=== PATIENT | male | born 1955 | race Caucasian/White ===

== ENCOUNTER 2020-07-18 18:12 | Emergency (ER) | payer OTHER, SELFPAY ==
[2020-07-18 18:13] VITALS: BP 188/99; PULSE 113; RESP 18; TEMP 36.6; O2SAT 98; BMI 27.3
--- NOTE | 2020-07-18 18:30 | ED.VIS.GEN ---
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 He denies history of coronary disease. He presents because of aching sensation that initially was in the proximity of the vaccine site. He states the pain then moved to the left trapezius area and belly of the bicep. He now complains of pain over the radial dorsal proximal portion of his left forearm. He also complains of tingling in all of his fingers. The pain is not in a radicular pattern. He does report increased pain with movement of his neck because of stiffness. He states he is not able to turn his neck as part of the left when he looks to make sure there is no vehicle behind his truck. He denies chest discomfort. He denies dyspnea or dyspnea on exertion. He denies orthopnea or PND. He denies abdominal pain. He denies headache. He denies visual symptoms. Nuys trouble with speech or swallowing. Prior similar symptoms: No Recent Illness/Hospitalization: No Past Medical History - Allergies and Home Meds Allergies/Adverse Reactions: Allergies No Known Allergies Allergy (Verified 07/18/20 18:15) Primary Care Physician: Chucky Brar III, MD [Primary Care Provider] - Prior records reviewed: No - Available since 2013 Surgical History: noncontributory Lives: Spouse/ Significant Other Smoking Status: Never smoker Alcohol: Rare Drugs: None Review of Systems General: Denies: Chills, Fever, Malaise, Subjective, Sweats Eyes: Denies: Visual changes - bilaterally, Blurred Vision - bilaterally ENT: Denies: Bilateral ear pain, Rhinorrhea, Sore throat Cardiovascular: Denies: Chest pain, Palpitations, Heart racing Respiratory: Denies: Dyspnea, Cough, Dyspnea on exertion, Orthopnea, Paroxysmal nocturnal dyspnea Gastrointestinal: Denies: Nausea, Vomiting Musculoskeletal: Reports: Extremity Pain. Denies: Myalgias, Arthralgias, Neck pain, Back pain, Swelling Skin: Denies: Rash, Abscess, Wounds Neurological: Reports: Parasthesia, Numbness - As described in the HPI. Denies: Headache, Weakness Endocrine: Denies: Polyuria, Polydipsia Physical Exam Vital Signs/Narrative: Vital Signs Temp Pulse Resp BP Pulse Ox 07/18/20 18:13 97.9 F 113 H 18 188/99 H 98 Inital Vital Signs reviewed: Yes General: Well nourished, Well developed, No Acute Distress Head: Normocephalic, Atraumatic Eyes: Perrl, EOMI. Negative for: Pale conjunctiva, Scleral icterus ENT: Moist mucous membranes, No rhinorrhea. Negative for: Nasal congestion Neck: Supple, Nontender, No lymphadenopathy, No JVD Cardiovascular: Regular rate, Regular rhythm, No murmurs, Normal S1, Normal S2 Respiratory: No distress, CTA bilaterally Skin: Normal color, No rash. Negative for: Cyanosis, Diaphoresis, Jaundice Neurological: Alert, Oriented x3, Cranial nerves II-XII grossly intact, Normal Strength - 5/5 all major muscle groups upper extremity, Normal Sensation, Normal DTR - Bicep, brachioradialis and tricep reflexes are 1-2+ and symmetric., - - Axillary, median, radial and ulnar function intact. Psychological: Normal affect Diagnostic/Tx/Re-eval - Medical Decision Making With migratory symptoms and symptoms starting day after vaccine suspect this is due to the Covid vaccine since his exam is negative and his history does not suggest cervical radicular pain or cardiac pain. ED Disposition - Plan for ED Patient: Disposition: Home or Assisted Living Diagnosis: Adverse effect of COVID-19 vaccine Instructions: ED Drug Reaction, Other Referrals: Chucky Brar III, MD [Primary Care Provider] - 1 Week if not improving
== END 2020-07-18 19:01 | disposition home or self-care (01) ==
LOC: ED 18:54
PROVIDERS: Emergency Provider Emergency Medicine; PCP Family Medicine
DX: T88.1XXA Other complications following immunization, not elsewhere classified, initial encounter (principal); M79.632 Pain in left forearm; M54.2 Cervicalgia; R20.2 Paresthesia of skin
CPT/HCPCS: 99282

== ENCOUNTER 2020-07-31 07:08 | Emergency (ER) | payer OTHER, SELFPAY ==
[2020-07-31 07:10] VITALS: BP 189/88; PULSE 106; RESP 22; TEMP 36.3; O2SAT 97; BMI 28.8
--- NOTE | 2020-07-31 07:15 | EKG12_ITS ---
Test Reason : BACK PAIN Blood Pressure : / mmHG Vent. Rate : 103 BPM Atrial Rate : 103 BPM P-R Int : 226 ms QRS Dur : 090 ms QT Int : 330 ms P-R-T Axes : 056 060 035 degrees QTc Int : 432 ms Sinus tachycardia with 1st degree A-V block Voltage criteria for left ventricular hypertrophy Abnormal ECG Confirmed by CASEY HERRMANN, JAVIER ([id number]), production editor ALLEGRA STAPLETON ([id number]) on 08/02/2020 10:58:58 AM Referred By: MORENA Confirmed By:JAVIER PEÑA MD
--- NOTE | 2020-07-31 07:19 | ED.VIS.GEN ---
History of Present Illness Chief Complaint: Back Narrative: Patient presents with left-sided thoracic back pain that started about 9 days ago. He was seen in the emergency department, at that time it was thought to be secondary to a Covid vaccination however his pain is both in the shoulder and the thoracic paraspinal region. He has no chest pain. He has no tearing sensation. He has no pleuritic component. No lower extremity edema or calf pain. He has no fevers or chills. No cough or congestion no abdominal pain. The pain does radiate into the arm but he has no loss of strength or sensory problems. Past medical history: Hypertension Medications: Reviewed includes lisinopril Social history: Noncontributory PCP Dr. Brar Review of systems: All systems negative except as indicated General: Denies: Fever Eyes: Denies: Visual changes - bilaterally ENT: Denies: Rhinorrhea, Sore throat Cardiovascular: Denies: Chest pain, no palpitations, no pleuritic component. Respiratory: Denies: Dyspnea, Cough Gastrointestinal: Denies: Abdominal pain, Nausea, Vomiting Genitourinary: Denies: Dysuria Musculoskeletal: Denies: Myalgias Back: There is left-sided thoracic pain. Skin: Denies: Rash Neurological: Denies: Headache, no focal weakness Psych: Reports: negative Hematologic: Denies: Easy bruising, Easy bleeding Physical exam General: Patient appears relatively comfortable in the bed. Head: Normocephalic, Atraumatic Eyes: Conjunctiva not pale ENT: Moist mucous membranes Neck: Supple, Nontender, No lymphadenopathy no C-spine tenderness Cardiovascular: Regular rate, Regular rhythm Respiratory: No distress, CTA bilaterally Abdomen: Soft, Nontender, Nondistended Back: No thoracic spinal tenderness, all his pain is in the trapezius and some paraspinal thoracic back pain. It is quite reproducible both with palpation and movement of the arm. Extremities: Nontender, No edema Skin: Normal color, No rash Neurological: Alert, Normal Strength of both upper extremities, equal. Normal Sensation Psychological: Normal affect Past Medical History - Allergies and Home Meds Allergies/Adverse Reactions: Allergies No Known Allergies Allergy (Verified 07/31/20 07:15) Primary Care Physician: Chucky Brar III, MD [Primary Care Provider] - Surgical History: noncontributory Smoking Status: Never smoker Physical Exam Vital Signs/Narrative: Vital Signs Temp Pulse Resp BP Pulse Ox 07/31/20 07:10 97.3 F L 106 H 22 H 189/88 H 97 Diagnostic/Tx/Re-eval Chest X-Ray - ED: 1 View, Read by ED Physician, Read by Radiologist, Normal, Heart, Lungs - Rhythm Strip Rhythm Strip: Sinus Rhythm Rate: 103 Ectopy: None - EKG Follow-up EKG Interpretation: - - Sinus rhythm with a rate of 103. Normal [place] and QTc interval. No ischemic changes. Interpreted by emergency doctor - Medical Decision Making Patient has an unremarkable ED work-up. Symptoms have been ongoing for some time. He has reproducible thoracic back pain. I do not believe further work-up is needed. He has normal strength and sensation I did mention to him that he. Otherwise I will discharge him with muscle relaxants. ED Disposition - Plan for ED Patient: Diagnosis: Acute thoracic myofascial strain Instructions: ED Back Sprain/Strain Prescriptions: Tizanidine HCl 2 mg PO BID #20 tablet Transmission Status: Pending to [id number] Referrals: Chucky Brar III, MD [Primary Care Provider] - 2 Days
[2020-07-31 07:24] LABS: Absolute Lymphocyte Count 1.07 X10^3/uL (0.83-4.51); Absolute Neutrophil Count 10.9 X10^3/uL (2.0-7.7); Basophil# 0.02 X10^3/uL; Basophil% 0.2 % (0-1); Eosinophil# 0.03 X10^3/uL; Eosinophils% 0.2 % (0-5); Hematocrit 47.1 % (40-54); Hemoglobin 15.8 g/dL (13.0-16.5); Lymphocyte # 1.07 X10^3/ul (4.0); Lymphocyte % 8.2 % (19-41); Mean Corp Hgb Conc 33.5 g/dL (32-36); Mean Corpuscular Hgb 30.7 pg (27.0-32.0); Mean Corpuscular Volume 91.6 fL (80-94); Mean Platelet Vol. 8.3 fl (6.2-12.0); Monocyte# 0.95 X10^3/uL; Monocyte% 7.3 % (0-10); NRBC Flagged by Analyzer 0 % (0-5); Neutrophil # 10.88 X10^3/uL (2.7-7.7); Neutrophil % 83.7 % (47-70); Platelet Count 310 K/mm3 (150-450); RBC Distribution Width CV 12.2 % (11.6-14.6); RBC Distribution Width SD 41.1 fl (35.1-43.9); Red Blood Count 5.14 M/mm3 (4.6-6.2)
--- NOTE | 2020-07-31 07:26 | RAD_ITS ---
STUDY: X-RAY CHEST REASON FOR EXAM: Male, 65 years old. Back pain TECHNIQUE: Single AP portable view of the chest. COMPARISON: None. FINDINGS: EKG electrodes are seen. Hyperinflation. The lungs are clear. There is no demonstrated pleural abnormality. Normal size heart. Normal mediastinum and erika. Normal visualized pulmonary arteries. There is atherosclerotic tortuosity of the aortic arch and descending thoracic aorta. There are diffuse degenerative changes of the visualized thoracic spine. Normal visualized ribs, clavicles, and shoulders. There is no demonstrated abnormality of the visualized soft tissue structures of the upper abdomen. RAD/Chest 1 View (Portable) IMPRESSION: Hyperinflation. The lungs are clear. Electronically Signed: Jorge Mcdaniels MD at 8:32 EDT , Service support ,
[2020-07-31] MEDS: Ketorolac 15 MG/ML Vial IV (07:36)
[2020-07-31 07:44] LABS: ALB/GLOB Ratio 1.1 RATIO (0.9-2.4); AST(SGOT) 18 U/L (15-37); Alanine Aminotransfer ALT/SGPT 31 U/L (16-61); Albumin, Serum 3.9 g/dL (3.2-5.0); Alkaline Phosphatase 84 U/L (45-117); Anion Gap 9 (5-15); BUN 18 mg/dL (7-18); BUN/Creat Ratio 18.4 RATIO (10-20); Calcium,Total 8.6 mg/dL (8.5-10.1); Chloride 97 mmol/L (98-107); Creatinine, Serum 0.98 mg/dL (0.70-1.30); EST Glomerular Filtration Rate 82 mL/min (>60); Est Glom Filt Rate - Afr Amer 99 mL/min (>60); Estimated Creatinine Clearance 75.15 ml/min; Globulin 3.5 g/dL (2.2-4.2); Glucose 111 mg/dL (74-106); Potassium 3.2 mmol/L (3.5-5.1); Protein, Total 7.4 g/dL (6.4-8.2); Sodium Level 131 mmol/L (136-145)
[2020-07-31 08:40] VITALS: BP 152/88; PULSE 80; RESP 16; O2SAT 98
== END 2020-07-31 08:57 | disposition home or self-care (01) ==
PROVIDERS: Emergency Provider Emergency Medicine; PCP Family Medicine
DX: S29.012A Strain of muscle and tendon of back wall of thorax, initial encounter (principal); M79.603 Pain in arm, unspecified; X58.XXXA Exposure to other specified factors, initial encounter; Y93.9 Activity, unspecified; Y92.9 Unspecified place or not applicable; Y99.9 Unspecified external cause status; I10 Essential (primary) hypertension; Z79.899 Other long term (current) drug therapy
CPT/HCPCS: 71045; 80053; 84484; 85025; 93005; 96374; 99282; A4216

== ENCOUNTER → 2022-01-17 | Outpatient (CLI) | payer MEDICARE, OTHER, SELFPAY | END | disposition home or self-care (01) | LOC: SL 20:27 | PROVIDERS: Referring Provider Physician Assistant; Visit Provider Physician Assistant | DX: G47.10 Hypersomnia, unspecified (principal); R06.81 Apnea, not elsewhere classified; R00.2 Palpitations; R06.02 Shortness of breath | CPT/HCPCS: 95810 ==